=== PATIENT | female | born 1965 | race Caucasian/White ===

== ENCOUNTER 2018-11-01 11:23 | Observation (INO) | payer OTHER ==
[~2018-11-01] VITALS: Ht 170.2 cm; Wt 97.3 kg
[~2018-11-01 11:23] MED LIST: CITA20TA9 PO; LISI-167 PO; LISI2.5T PO
--- NOTE | 2018-11-01 11:51 | NUR ---
PT REPORTS CP SINCE 8 AM WHILE STEPPING INTO THE SHOWER. PT REPORTS PAIN A SQUEEZING TYPE PAIN THAT WAS INTITAILY A 8/10 BUT NOW A 4/10 AFTER 324 OF ASPIRIN TAKEN AT HOME. PT DENIES SOB, NV, OR SWEATING. PT ON MONITOR. WAITING FOR ORDERS.
[2018-11-01] MEDS ORDERED: SODIUM CHLORIDE FLUSH 10ML SYR IVF ONE (12:30)
[2018-11-01] MEDS ORDERED: NITROGLYCERIN SINGLE TAB 0.4 MG SL PRN (12:30)
[2018-11-01] MEDS ORDERED: LORazepam 2 MG/ML, 1ML IVPush ONE (12:30)
[2018-11-01] MEDS ORDERED: NITROGLYCERIN OINT 2%, 1GM TP ONE ×2 (12:30→12:37)
[2018-11-01 12:32] LABS: BASOPHILS # (AUTO) 0.06 x10^3/uL (0-0.1); BASOPHILS % (AUTO) 1 % (0-1); EOSINOPHILS # (AUTO) 0.21 x10^3/uL (0-0.4); EOSINOPHILS % (AUTO) 3 % (1-7); LYMPHOCYTES # (AUTO) 2.44 x10^3/uL (1-3.4); LYMPHOCYTES % (AUTO) 34 % (22-44); MD NO; MEAN CORPUSCULAR HEMOGLOBIN 31.4 pg (27.0-34.8); MEAN CORPUSCULAR HGB CONC 33.5 g/dL (32.4-35.8); MEAN CORPUSCULAR VOLUME 93.7 fL (80-100); MEAN PLATELET VOLUME 8.3 fL (7.4-10.4); MONOCYTES % (AUTO) 9 % (2-9); NEUTROPHILS # (AUTO) 3.77 x10^3/uL (1.8-6.8); NEUTROPHILS % (AUTO) 53 % (42-75); PLATELET COUNT 270 x10^3/uL (130-400); RED BLOOD COUNT 4.39 x10^6/uL (3.82-5.3); RED CELL DISTRIBUTION WIDTH 12.9 % (9.6-15.2)
[2018-11-01] MEDS ORDERED: NITROGLYCERIN SINGLE TAB 0.4 MG SL ONE (12:37)
[2018-11-01 12:44] LABS: ALANINE AMINOTRANSFERASE 40 U/L (12-78); ALBUMIN 3.7 g/dL (3.4-5.0); ANION GAP 6 mmol/L (5-15); CALCIUM 8.9 mg/dL (8.5-10.1); CHLORIDE 106 mmol/L (98-107); CREATININE 0.74 mg/dL (0.55-1.02)
[2018-11-01 12:48] LABS: ALKALINE PHOSPHATASE 150 U/L (45-117); BILIRUBIN,TOTAL 0.2 mg/dL (0.2-1.0); TOTAL PROTEIN 7.3 g/dL (6.4-8.2); TROPONIN I < 0.015 ng/mL (0.000-0.045)
--- NOTE | 2018-11-01 12:53 | NUR ---
PAIN RELIEVED OF CP AFTER ONE NITRO SUBLINGUALLY. DR. HARRISON AWARE. BP WENT DOWN TO 115/80.
[2018-11-01] MEDS ORDERED: LORazepam 2 MG/ML, 1ML ONE (13:08)
[2018-11-01] MEDS ORDERED: ACETAMINOPHEN 325 MG TABLET PO PRN (14:00)
[2018-11-01] MEDS ORDERED: NITROGLYCERIN 0.4 MG BOTTLE (25 TABS) SL PRN (14:00)
[2018-11-01] MEDS ORDERED: LIDODERM 5% PATCH TD PRN (14:00)
[2018-11-01] MEDS ORDERED: NITROGLYCERIN 0.4 MG/SPRAY SL PRN (14:00)
[2018-11-01] MEDS ORDERED: ASPIRIN 325 MG TABLET EC PO ONE (14:00)
[2018-11-01] MEDS ORDERED: morphine SULFATE 10 MG/ML, 1ML IV PRN (14:00)
[2018-11-01 14:11] VITALS: BP 145/90
[2018-11-01] MEDS ORDERED: LISI40TA PO (14:20)
[2018-11-01 16:15] LABS: CHOLESTEROL, TOTAL 240 mg/dL (140-239)
[2018-11-01 16:19] LABS: CHOL/HDL RATIO 4.3; HDL CHOL % 23 % (28-40); HDL CHOLESTEROL (DIRECT) 56 mg/dL (40-60); LDL CHOLESTEROL,CALCULATED 163 mg/dL (54-169); LDL/HDL RATIO 2.9 (0.5-3.0); TRIGLYCERIDES 103 mg/dL (50-200); TROPONIN I < 0.015 ng/mL (0.000-0.045); VLDL CHOLESTEROL 21 mg/dL (0-25)
[2018-11-01] MEDS ORDERED: HYDR12.517 PO (17:46)
[2018-11-01] MEDS ORDERED: LACTATED RINGERS 500 ML IV SCH (18:00)
[2018-11-01 19:50] VITALS: BP 109/72
[2018-11-01 20:27] LABS: TROPONIN I < 0.015 ng/mL (0.000-0.045)
[2018-11-01] MEDS: SODIUM CHLORIDE FLUSH 10ML SYR IVF SCH (20:36)
[2018-11-01] MEDS ORDERED: MELATONIN 5 MG TABLET PO PRN (22:00)
[2018-11-02 02:51] VITALS: BP 108/69
[2018-11-02] MEDS: LACTATED RINGERS 1,000 ML IV SCH ×2 (04:53→15:00)
[2018-11-02] MEDS ORDERED: LACTATED RINGERS 1,000 ML IV SCH ×2 (05:00→18:00)
[2018-11-02 05:37] LABS: CHLORIDE 108 mmol/L (98-107)
[2018-11-02 05:43] LABS: ANION GAP 4 mmol/L (5-15); CALCIUM 9.3 mg/dL (8.5-10.1); CREATININE 0.75 mg/dL (0.55-1.02)
[2018-11-02] MEDS ORDERED: ASPIRIN 325 MG TABLET EC PO SCH (06:00)
[2018-11-02 07:30] VITALS: BP 131/90
[2018-11-02] MEDS ORDERED: POTASSIUM CHLORIDE 20 MEQ TAB.ER.PRT PO ONE (07:30)
[2018-11-02] MEDS ORDERED: CITALOPRAM 20 MG TABLET PO SCH (09:00)
[2018-11-02] MEDS ORDERED: LISINOPRIL 10 MG TABLET PO SCH (09:00)
[2018-11-02] MEDS ORDERED: SERTRALINE 50MG TABLET PO SCH (09:00)
[2018-11-02] MEDS ORDERED: HYDROCHLOROTHIAZIDE 12.5 MG CAPSULE PO SCH (09:00)
[2018-11-02] MEDS ORDERED: LISINOPRIL 20 MG TABLET PO SCH (09:00)
[2018-11-02] MEDS: SODIUM CHLORIDE FLUSH 10ML SYR IVF SCH (12:44)
[2018-11-02 13:30] VITALS: BP 122/79
[2018-11-02] MEDS ORDERED: CITA20TA9 PO (14:17)
== END 2018-11-02 15:58 | disposition home or self-care (01) ==
LOC: ED 11:49 → INTOOBSV 13:30 → EDIP 13:30 → 5SO 14:05 → DCLOUNGE 11-02 15:50
PROVIDERS: ADMIT Family Medicine; ATTEND Family Medicine
DX: R07.89 Other chest pain (principal); I10 Essential (primary) hypertension; F41.1 Generalized anxiety disorder; F32.9 Major depressive disorder, single episode, unspecified; Z82.49 Family history of ischemic heart disease and other diseases of the circulatory system; Z23 Encounter for immunization
CPT/HCPCS: 36415; 71045; 78452; 80048; 80053; 80061; 84484; 85025; 85379; 90471; 90656; 93005; 93017; 96374; 99284; A9502; C9898; G0378; J2060; J7120